=== PATIENT | female | born 1985 | race Caucasian/White ===

== ENCOUNTER 2019-03-13 14:33 | Emergency (ER) | payer MEDICAID ==
[~2019-03-13] VITALS: Ht 154.9 cm; Wt 101.0 kg
[2019-03-13 14:38] VITALS: Ht 154.9 cm; Wt 101.0 kg
--- NOTE | 2019-03-13 15:54 | ERD ---
ER Documentation Chief Complaint Chief Complaint vaginal bleeding, lower abd pain - - LMP 01/11/19 HPI 33-year-old female, at approximately 7 weeks with LMP 01/11/2019, presents the emergency department, complaining of 1 day with vaginal bleeding and mild pelvic pain. The patient has established care at [facility]. She denies fever, no chills, no urinary symptoms, no nausea or vomiting. ROS All systems reviewed and are negative except as per history of present illness. Allergies Allergies: Coded Allergies: No Known Allergy (Unverified , 03/13/19) PMhx/Soc Medical and Surgical Hx: pt denies Medical Hx, pt denies Surgical Hx FmHx Family History: No diabetes, No coronary disease Physical Exam Vitals Vital Signs Date Temp Pulse Resp B/P (MAP) Pulse Ox O2 O2 Flow FiO2 Time Delivery Rate 03/13/19 97.9 94 19 124/56 97 14:38 (78) Physical Exam Const: No acute distress Head: Atraumatic Eyes: Normal Conjunctiva ENT: Normal External Ears, Nose and Mouth. Neck: Full range of motion. No meningismus. Resp: Clear to auscultation bilaterally Cardio: Regular rate and rhythm, no murmurs Abd: Soft, non tender, non distended. Normal bowel sounds Skin: No petechiae or rashes Back: No midline or flank tenderness Ext: No cyanosis, or edema Neur: Awake and alert Psych: Normal Mood and Affect Result Diagram: 03/13/19 1613 Results 24 hrs Laboratory Tests Test 03/13/19 16:13 White Blood Count 10.9 10^3/ul Red Blood Count 4.98 10^6/ul Hemoglobin 13.8 g/dl Hematocrit 42.8 % Mean Corpuscular Volume 85.9 fl Mean Corpuscular Hemoglobin 27.7 pg Mean Corpuscular Hemoglobin Concent 32.2 g/dl Red Cell Distribution Width 13.8 % Platelet Count 340 10^3/UL Mean Platelet Volume 9.6 fl Immature Granulocytes % 0.600 % Neutrophils % 62.9 % Lymphocytes % 26.7 % Monocytes % 5.4 % Eosinophils % 3.8 % Basophils % 0.6 % Nucleated Red Blood Cells % 0.0 /100WBC Immature Granulocytes # 0.070 10^3/ul Neutrophils # 6.9 10^3/ul Lymphocytes # 2.9 10^3/ul Monocytes # 0.6 10^3/ul Eosinophils # 0.4 10^3/ul Basophils # 0.1 10^3/ul Nucleated Red Blood Cells # 0.0 10^3/ul Urine Color RED Urine Clarity SLIGHTLY CLOUDY Urine pH 7.0 Urine Specific [place] 1.003 Urine Ketones NEGATIVE mg/dL Urine Nitrite NEGATIVE mg/dL Urine Bilirubin NEGATIVE mg/dL Urine Urobilinogen NEGATIVE mg/dL Urine Leukocyte Esterase NEGATIVE Gary/ul Urine Microscopic RBC 89 /HPF Urine Microscopic WBC 0 /HPF Urine Squamous Epithelial Cells FEW /HPF Urine Bacteria FEW /HPF Urine Hemoglobin 3+ mg/dL Urine Glucose NEGATIVE mg/dL Urine Total Protein NEGATIVE mg/dl Beta HCG, Quantitative 7277.4 mIU/ml Patient: ASHA GRAY : 1985 Age: 33 Sex: F MR #: [id number] DOS: 03/13/19 1600 Ordering MD: JIA CHO MD Location: [facility]TE Room/Bed: PROCEDURE: US Pelvis/OB. CLINICAL INDICATION: Vaginal spotting TECHNIQUE: Multiple sonographic images of the pelvis were obtained utilizing a transabdominal and endovaginal technique. The images were reviewed on a PACS workstation. COMPARISON: None. FINDINGS: There is a small cystic structure within the endometrium measuring 0.9 cm which would correspond to a calculated gestational age of 5 weeks and 3 days. No pole or yolk sac is yet visualized. The ovaries are not visualized. No significant free fluid is present within the pelvis. RPTAT: AA IMPRESSION: Possible early intrauterine at 5 weeks and 3 days. No pole or y olk sac is yet visualized. Close followup ultrasound and hCG is recommended. .Niels Grimm MD, MD Date Time Electronically viewed and signed by .Niels Grimm MD, on 03/13/2019 17:41 .S/ CC: JIA CHO MD [phone] Procedures/MDM Vital signs stable, Physical exam unremarkable. Differential diagnosis include but not limited to: UTI, threatening , incomplete versus complete , ectopic , physiologic implantation bleeding, molar . Physical examination and clinical presentation most likely consistent with t hreatening . During the ED course the patient remained hemodynamically stable and asymptomat ic. Results and clinical impression discussed with patient who agrees with management. The patient is stable to be treated outpatient and will be discharged home with close monitoring and follow-up in 2 days with her primary physician. Bed rest and pelvic rest recommended until further medical e valuation. The patient was instructed regarding the outcomes and the potential complications like severe bleeding and . If the patient presents severe bleeding or pain, she was instructed to return to the hospital immediately. Disclaimer: Inadvertent spelling and grammatical errors are likely due to EHR/dictation software use and do not reflect on the overall quality of patient care. Also, please note that the electronic time recorded on this note does not necessarily reflect the actual time of the patient encounter. Departure Diagnosis: Primary Impression: Vaginal bleeding affecting early Additional Impression: Threatened Condition: Stable Additional Instructions: Muchas andres por [facility] para barrios servicio. Esperamos que en barrios visita a la kiran de emergencia barrios problema medico haya sido solucionado y que se sienta mucho mejor. Para estar seguros que barrios mejoria sigue en proceso, le pedimos el favor de hacer dru mynor de seguimiento medico con barrios doctor primario en los proximos 2-4 randhawa. Lleve con usted estos documentos y las medicinas recetadas. Si gwen sintomas empeoran, NO SE ESPERE, por favor regrese a kiran de emergencia INMEDIATAMENTE. En [place] que usted no tenga un mdico de atencin primaria: Llame al mdico o clnica comunitaria de referencia que aparece abajo arvin las horas de consultorio para hacer dru mynor para que le vean. CLINICAS: [facility] [phone] [facility] [phone] [place] [phone] [address] [facility] [phone] [facility] [phone] [facility]. [phone] JIA DIAZ MD March 13, 2019 15:54
[2019-03-13 18:07] VITALS: BP 143/82; PULSE 60; RESP 18
== END 2019-03-13 18:08 | disposition home or self-care (01) ==
LOC: FTE 14:33
DX: O20.0 Threatened abortion (principal); Z3A.01 Less than 8 weeks gestation of pregnancy
CPT/HCPCS: 36415; 76801; 76817; 81001; 84702; 85025; Z7502

== ENCOUNTER 2019-03-17 08:59 | Emergency (ER) | payer MEDICAID ==
[~2019-03-17] VITALS: Ht 152.4 cm; Wt 99.0 kg
[2019-03-17 09:03] VITALS: Ht 152.4 cm; Wt 99.0 kg
[2019-03-17 12:58] VITALS: BP 121/80; PULSE 69; RESP 16
--- NOTE | 2019-03-17 17:57 | ERD ---
ER Documentation Chief Complaint Chief Complaint pt is bib self with c/o vag bleeding starting today 5 wks preg HPI History of Present Illness: 33-year-old female who denies a past medical history coming in today with complaint of vaginal bleeding that started yesterday. Patient reports heavy bleeding at home with a passage of a large clot. Patient reports that now that she is only having spotting. Patient reports being approx imately 5 weeks . Patient was at [facility] emergency department 3 days ago with vaginal bleeding, diagnosis of threatened miscarriage. At home pharmacological/nonpharmacological treatment for symptoms: Denies Denies social concerns; Denies recent foreign travel ROS All systems reviewed and are negative except as per history of present illness. Allergies Allergies: Coded Allergies: No Known Allergy (Unverified , 03/13/19) PMhx/Soc Medical and Surgical Hx: pt denies Medical Hx History of Surgery: Yes ( X1) Anesthesia Reaction: No Hx Alcohol Use: No Hx Substance Use: No Hx Tobacco Use: No Smoking Status: Never smoker Physical Exam Vitals Vital Signs Date Temp Pulse Resp B/P (MAP) Pulse Ox O2 O2 Flow FiO2 Time Delivery Rate 03/17/19 98.3 69 16 121/80 98 Room Air 12:58 (94) 03/17/19 98.0 84 18 124/68 98 09:03 (86) Physical Exam Const: No acute distress Head: Atraumatic Eyes: Normal Conjunctiva ENT: Normal External Ears, Nose and Mouth. Neck: Full range of motion. No meningismus. Resp: Clear to auscultation bilaterally Cardio: Regular rate and rhythm, no murmurs Abd: Soft, non tender, non distended. Normal bowel sounds Skin: No petechiae or rashes Back: No midline or flank tenderness Ext: No cyanosis, or edema Neur: Awake and alert Psych: Normal Mood and Affect Vaginal exam deferred after patient heard her ultrasound results patient ref used. Result Diagram: 03/17/19 1047 Results 24 hrs Laboratory Tests Test 03/17/19 10:34 03/17/19 10:47 Urine Color YELLOW Urine Clarity SLIGHTLY CLOUDY Urine pH 6.0 Urine Specific [place] 1.014 Urine Ketones NEGATIVE mg/dL Urine Nitrite NEGATIVE mg/dL Urine Bilirubin NEGATIVE mg/dL Urine Urobilinogen NEGATIVE mg/dL Urine Leukocyte Esterase TRACE Gary/ul Urine Microscopic RBC 4 /HPF Urine Microscopic WBC 6 /HPF Urine Squamous Epithelial Cells MODERATE /HPF Urine Bacteria FEW /HPF Urine Mucus FEW /HPF Urine Hemoglobin 3+ mg/dL Urine Glucose NEGATIVE mg/dL Urine Total Protein NEGATIVE mg/dl White Blood Count 8.5 10^3/ul Red Blood Count 4.91 10^6/ul Hemoglobin 13.6 g/dl Hematocrit 42.3 % Mean Corpuscular Volume 86.2 fl Mean Corpuscular Hemoglobin 27.7 pg Mean Corpuscular Hemoglobin Concent 32.2 g/dl Red Cell Distribution Width 13.7 % Platelet Count 350 10^3/UL Mean Platelet Volume 9.9 fl Immature Granulocytes % 0.900 % Neutrophils % 64.3 % Lymphocytes % 24.6 % Monocytes % 5.2 % Eosinophils % 4.4 % Basophils % 0.6 % Nucleated Red Blood Cells % 0.0 /100WBC Immature Granulocytes # 0.080 10^3/ul Neutrophils # 5.5 10^3/ul Lymphocytes # 2.1 10^3/ul Monocytes # 0.4 10^3/ul Eosinophils # 0.4 10^3/ul Basophils # 0.1 10^3/ul Nucleated Red Blood Cells # 0.0 10^3/ul Beta HCG, Quantitative 1442.3 mIU/ml Procedures/MDM ED course includes a thorough examination and history. Medications: OB transvaginal and abdominal ultrasound Imaging: Labs: CBC, urinalysis, Rh, beta quantitative Low suspicion for life-threatening medical emergency. Low suspicion for obstetrical/gynecological emergency that requires hospitalization or immediate surgical intervention. low suspicion for hemorrhage at this time. Otherwise healthy patient presenting with constellation of symptoms likely representing complete miscarriage as characterized by history, physical exam findings, lab findings, imaging findings. CBC: no e/o of systemic infection or severe anemia. Urinalysis with trace leukocyte esterase, few bacteria; patient is asymptomatic and reports a dirty catch sample. Beta quantitative is 1.4K. Ultrasound results showing: IMPRESSION: Previously seen gestational sac is no longer visualized. Slightly thickened endometrium with no increased vascularity. Findings likely represent an in progress. Follow-up ultrasound and HCG levels is recommended. .Niels Grimm MD, MD Date Time Electronically viewed and signed by .Niels Grimm MD, MD on 03/17/2019 12: 17 Patient reassessment: Beta quantitative have decreased since last visit cephalic respiratory emergency department. sac is no longer present on ultrasound. Patient appears to have miscarried. Educated on return precautions including hemorrhage and fever. Patient hemodynamically stable. No respiratory distress, otherwise relatively well appearing and nontoxic. Disposition given. Patient educated on diagnoses, prescriptions, follow-up care, return precautions. Strict return precautions given for worsening condition; questions answered discharge. Disposition for discharge with followup in 2 days with PCP/clinic. Departure Diagnosis: Primary Impression: Complete miscarriage Condition: Stable Patient Instructions: Miscarriage, Spontaneous (Completed) Referrals: [facility] Laly se saab hecho un examen mdico de control que le indica que no est en dru condicin que requiera tratamiento urgente en el Departamento de Emergencia. Un estudio ms profundo y el tratamiento de cobb condicin pueden esperar sin ningn riesgo hasta que usted sea atendida/o en el consultorio de cobb mdico o dru clnica. Es responsabilidad suya arreglar dru mynor para el seguimiento del [place]. MANEJO DE CONDICIONES NO URGENTES EN EL FUTURO 1) Si usted tiene un mdico de atencin primaria: Usted debera llamar a cobb mdico de atencin primaria antes de venir al departamento de emergencia. Despus de las horas de consultorio, cobb doctor o cobb asociado/a est disponible por telfono. El mdico o enfermero de ga en el servicio telefnico puede asesorarle por aryan medio para atender el problema, o [place] contrario se puede programar dru mynor. 2) Si usted no tiene un mdico de atencin primaria: Llame al mdico o clnica de referencia que aparece abajo arvin las horas de consultorio para hacer dru mynor para que le vean. CLINICAS: [facility] [phone] [facility] [phone] [facility] [phone] [place] [address] [phone] [place] [phone] [place] [phone] [address] [facility] () Usted se saab hecho un examen mdico de control que le indica que no est en dru condicin que requiera tratamiento urgente en el Departamento de Emergencia. Un estudio ms profundo y el tratamiento de cobb condicin pueden esperar sin ningn riesgo hasta que usted sea atendida/o en el consultorio de cobb mdico o dru clnica. Es responsabilidad suya arreglar dru mynor para el seguimiento del [place]. MANEJO DE CONDICIONES NO URGENTES EN EL FUTURO 1) Si usted tiene un mdico de atencin primaria: Usted debera llamar a cobb mdico de atencin primaria antes de venir al departamento de emergencia. Despus de las horas de consultorio, cobb doctor o cobb asociado/a est disponible por telfono. El mdico o enfermero de ga en el servicio telefnico puede asesorarle por aryan medio para atender el problema, o [place] contrario se puede programar dru mynor. 2) Si usted no tiene un mdico de atencin primaria: Llame al mdico o condado institucions de referencia que aparece abajo arvin las horas de consultorio para hacer dru mynor para que le vean. SI USTED NO PUEDE PAGAR PARA CAMRYN UN MEDICO puede ir a: [facility] [address] [place] [address] [facility] [address] [place] [address] [facility] [address] [place] [address] [facility] [address] [place], [place] [phone] [employer] [place] [address] [facility] [address] [place] [address] OFFICE FAX , [place] [address] [place] [address] [address] [place] [address] [place] [address] [address] CARRAN[address] [facility] [address] [facility], [address] [facility] [address] [address] [address] [place] [address] [facility] [address] [place] [address] [facility] [phone] [address]ILMORE, [facility] [address] [facility] [address] [address]GLESBY, MICHAEL [address] [facility]. [address], [facility] [address] [address]ENORIO, [facility] [address] [place], [place] [id number] Additional Instructions: Muchas andres por permitirnos participar en cobb cuidado. Cobb elda y seguridad es nuestra principal prioridad en [facility]. Es importante leer todas las instrucciones de yazan y la educacin que se proporcionan en cobb paquete de yazan. * Si tiene fiebre, vuelva al servicio de urgencias. Si desarrolla sangrado janiya (1 almohadilla menstrual por hora), regrese a la kiran de emergencias * Llame a cobb mdico de atencin primaria MAANA para dru mynor arvin los prximos 2 a 4 leo y lleve toda la informacin y los medicamentos recetados. Llene las recetas y siga exactamente las instrucciones de la etiqueta. Si los sntomas empeoran y cobb proveedor no est disponible, regrese inmediatamente al Departamento de Emergencias. ----- Thank you very much for allowing us to participate in your care. Your health and safety is our top priority at [facility]. It is important to read all discharge instructions and education provided in your discharge packet. *If you develop fever, return to emergency department. If you develop severe bleeding (1 menstrual pad per hour), return to emergency department* Call your primary care doctor TOMORROW for an appointment during the next 2-4 days and bring all the information and medications prescribed. Have prescriptions filled and follow precisely the directions on the label. If the symptoms get worse and your provider is unavailable, return to the Emergency Department immediately. AURORA MARINO NP March 17, 2019 17:57
== END 2019-03-17 12:59 | disposition home or self-care (01) ==
LOC: FTE 08:59
DX: O03.9 Complete or unspecified spontaneous abortion without complication (principal); Z3A.01 Less than 8 weeks gestation of pregnancy
CPT/HCPCS: 36415; 76801; 76817; 81001; 84702; 85025; 86900; 86901; Z7502